=== PATIENT | male | born 1995 | race Caucasian/White ===

== ENCOUNTER 2023-04-18 10:34 | Emergency (ER) | payer MEDICAID, SELFPAY ==
[2023-04-18 10:38] VITALS: BP 131/79; PULSE 70; RESP 16; TEMP 36.5; O2SAT 99
--- NOTE | 2023-04-18 10:45 | DI.RAD_ITS ---
Exam(s) XR RIBS RT W PA LAT CHEST EXAM: XR RIBS RT W PA LAT CHEST CLINICAL HISTORY: right thorax injury, fall onto right side TECHNIQUE: 2D digital imaging was performed. COMPARISON: No exams were available for comparison FINDINGS: RIBS 4 VIEWS-right There are no obvious acute rib fractures evident. No lytic rib lesions identified. CXR- 2 VIEWS: No lung contusion or pneumothorax. There is no pleural effusion evident. Heart size is normal and there is no significant mediastinal widening. IMPRESSION: 1. No obvious rib fractures evident. Also no significant rib lesions. 2. No ipsilateral lung nor pleural abnormality evident. No pneumothorax. DATA REPOSITORY: RADIATION DOSE DELIVERED:
--- NOTE | 2023-04-18 10:45 | DI.RAD_ITS ---
Exam(s) XR HAND RT COMPLETE EXAM: XR HAND RT COMPLETE CLINICAL HISTORY: right hand injury 2nd and 3rd. TECHNIQUE: 2D digital imaging was performed. COMPARISON: No exams were available for comparison FINDINGS: 3 views No evidence of acute fracture or dislocation. No osseous lesions nor erosions. No radiopaque foreig n bodies. IMPRESSION: No acute osseous findings. DATA REPOSITORY: RADIATION DOSE DELIVERED:
--- NOTE | 2023-04-18 10:45 | DI.RAD_ITS ---
Exam(s) XR WRIST RT COMPLETE EXAM: XR WRIST RT COMPLETE CLINICAL HISTORY: pain post fall. TECHNIQUE: 2D digital imaging was performed. COMPARISON: No exams were available for comparison FINDINGS: 3 views No evidence of acute fracture or dislocation nor significant ulnar variance. Sclerotic benign bone i sland noted in the medial aspect of the lunate bone. Scaphoid and scapholunate distance normal. No lytic osseous lesions. IMPRESSION: No acute osseous findings. DATA REPOSITORY: RADIATION DOSE DELIVERED:
[2023-04-18] MEDS: Tetanus & Diphtheria Tox,ADULT 0.5 ML VIAL IM (12:15)
--- NOTE | 2023-04-18 14:11 | ED.GENADUL_ITS ---
Discharge Plan Disposition Patient Disposition: Home Condition: Stable Discharge Details Clinical Impression: Finger laceration, Chest wall contusion, Fall Primary Care Provider: Unknown,Unknown ED Provider: Corine Ibrahim Home Meds and New Rx's Prescriptions: No Action No Known Home Meds Discharge Instructions Instructions: Contusion in Adults (ED), Finger Laceration (ED) Additional Instructions: Wash with soap and water once a day, you may keep this dressing on for 2 days Should you develop redness, swelling, discharge, fever, you should be reassessed, you may need an ultrasound to evaluate for foreign body, there is no evidence of fracture on your x-rays Make sure you take at least 8 deep breaths daily so you do not develop pneumonia Return earlier should you have new or worsening complaints Take ibuprofen 600 mg every 8 hours with food You may take Tylenol 650 every 4-6 hours You can also take Flexeril as needed for musculoskeletal pain, do not drive for 8 hours after taking this medication Stand Alone Forms: Work Release Discharge Data Discharge Date/Time-TO BE ENTERED AT DEPARTURE: 04/18/23 12:16 Medical Decision Making This 27-year-old male presents with report of fall off ladder, GCS 15, alert and oriented x 4, cranial nerves II through XII intact, no visible signs of head or neck injury, specifically no cervical spine tenderness, tenderness to right lateral chest wall, small ecchymosis approximately the size of a dollar, no crepitus, no tenderness overlying abdomen or visible signs of abdominal trauma, no CVA tenderness, no thoracic or lumbar spine tenderness, neurovascularly intact bilateral lower extremities, no tenderness or visible abdomen trauma to bilateral lower extremities, right upper extremity with lacerations along the dorsal aspect of the second and third digits overlying the PIP joint, abrasions noted to palmar aspect of hand and small abrasion to right wrist, Tetanus will be administered as patient is unsure as to last does not have primary care physician Wounds were cleansed, significant debris, patient declines suture placement, will place in dressings and splint, healing No evidence of large retained foreign body, will place on bacitracin which patient will reapply daily and check wounds, he is aware that should he have re dness, swelling, or evidence of secondary infection, he should have additional ultrasound imaging to be sure there is not retained foreign body Ibuprofen and Tylenol encouraged for pain, work note supplied Ambulatory with steady gait, pupils equal round reactive to light and accommodation Return precautions discussed in detail and patient expressed understanding, no significant distracting injury noted on assessment, chest x-ray per radiology interpretation my review does not show evidence of fracture Or pneumothorax Right hand and wrist do not show evidence of fracture or dislocation per radi ology interpretation my review Return precautions reviewed and patient expressed understanding HPI General Date/Time Provider Initiated Documentation: 04/18/23 10:38 . HPI Narrative: This 27-year-old male presents with report of fall approximately 10 feet off a ladder, landing on his right side, denies any head injury. States he was able to ambulate on scene. Unsure regarding tetanus. Denies loss of consciousness or head injury. States he has pain in his right rib, his right fingers, and mild pain to his right wrist. He denies any additional lower extremity injury. Denies current headache, neck pain, chest pain, or back pain. Does report right rib pain, denies history of coagulopathy. Related Data Home Medications Medication Instructions Recorded Confirmed Unknown [No Known Home Meds] 04/18/23 04/18/23 Allergies Allergy/AdvReac Type Severity Reaction Status Date / Time No Known Allergies Allergy Unverified 04/18/23 10:42 General Stated Complaint: Trauma JAGDISH: 3 PFSH All Active Problems (Updated 04/18/23 @ 11:59 by TY Georges) Fall (Acute) Chest wall contusion (Acute) Finger laceration (Acute) Social History Smoking risk assessment performed?: No Alcohol Intake: current Alcohol Intake frequency: holidays/special occasions only Drug use: Never Substance use type: does not use Housing: apartment Do you feel safe at home: Yes Do you feel safe in your relationship?: Yes Course Vital Signs Vital signs: Vital Signs Temperature 36.5 C 04/18/23 10:38 Pulse 70 04/18/23 10:38 Respiratory Rate 16 04/18/23 10:38 Blood Pressure 131/79 04/18/23 10:38 Pulse Oximetry 99 04/18/23 10:38 Temperature 36.5 C 04/18/23 10:38 Temperature Source Temporal Artery Scan 04/18/23 10:38 Pulse 70 04/18/23 10:38 Respiratory Rate 16 04/18/23 10:38 Respiratory Effort Normal 04/18/23 10:51 Blood Pressure 131/79 04/18/23 10:38 Blood Pressure Position Sitting 04/18/23 10:38 Pulse Oximetry 99 04/18/23 10:38 Oxygen Delivery Method Room Air 04/18/23 10:38 Oxygen Flow Rate 0 04/18/23 10:38
--- NOTE | 2023-04-18 20:29 | NUR.NOTE ---
Referral to Care Management to establish PCP.Nursing Note:
== END 2023-04-18 12:16 | disposition home or self-care (01) ==
PROVIDERS: Emergency Provider Physician Assistant
DX: S61.213A Laceration without foreign body of left middle finger without damage to nail, initial encounter (principal); S61.214A Laceration without foreign body of right ring finger without damage to nail, initial encounter; W11.XXXA Fall on and from ladder, initial encounter; S20.211A Contusion of right front wall of thorax, initial encounter; M25.531 Pain in right wrist
CPT/HCPCS: 90471; 99284; 71046; 71100; 73110; 73130; 99283